=== PATIENT | male | born 1975 | race African-American/Black ===

== ENCOUNTER 2016-04-17 06:15 | Emergency (ER) | payer OTHER ==
[2016-04-17 06:31] VITALS: BP 178/102; PULSE 85; TEMP 98.1; BMI 38.7
--- NOTE | 2016-04-17 06:55 | PDOC ---
[id number] [id number] FALL/RT SHOULDER PAIN Time Seen by Provider: 04/17/16 06:45 - History of Present Illness Initial Comments: 04/17/16 06:46 CHIEF COMPLAINT: shoulder pain HISTORY OF PRESENT ILLNESS: 41-year-old male with PMH of HTN (not on medication ) presents to ED with R shoulder pain status post fall this morning on the stairs. Patient states that he was walking on the stairs and tripped; he grabbed the guardrail and felt a tight sensation to his R shoulder and then some tingling to his arm and hands. PAST MEDICAL HISTORY: "I know I have high blood pressure, I am going to see a doctor for that" FAMILY HISTORY: Denies SOCIAL HISTORY: Occupation: automotive service technician. Occasional alcohol use "just on weekends a little bit" Denies tobacco, illicit drug use. SURGICAL HISTORY: Denies ALLERGIES: No known drug allergies REVIEW OF SYSTEMS General/Constitutional: Denies fever or chills. Denies weakness. Cardiovascular: Denies chest pain or shortness of breath. Musculoskeletal: Pain to R shoulder. Denies joint or muscle swelling or pain. Denies neck or back pain. Skin: Denies rash or easy bruising. Neurological: Denies LOC, loss of sensation, vertigo, headache. PHYSICAL EXAM General Appearance: Well-appearing, appropriately dressed. No apparent distress. HEENT: EOMI, PERRLA, normal voice. No conjunctival pallor. No photophobia, scleral icterus. Respiratory/Chest: Lungs CTAB. Cardiovascular: RRR. S1, S2. Vascular Pulses: Dorsalis-Pedis (R): 2+, Dorsalis-Pedis (L): 2+ Musculoskeletal/Extremities: Positive empty can test. Positive Neer/Hawkin's test. Full ROM to R shoulder, no erythema, edema. Normal inspection. FROM of all other extremities, normal capillary refill. No tenderness to extremities, pedal edema, swelling, erythema or deformity. Integumentary: Appropriate color, dry, warm. No cyanosis, erythema, jaundice or rash Neurologic: dental tech II-XII intact. Fully oriented, alert. Appropriate mood/affect. Motor strength 5/5. No appreciable EOM palsy, facial droop or sensory deficit. Past History - Past Medical History Allergies/Adverse Reactions: Allergies Allergy/AdvReac Type Severity Reaction Status Date / Time No Known Allergies Allergy Verified 04/17/16 06:25 Home Medications: Ambulatory Orders No Home Medications 0 mg PO DAILY 07/25/13 Anemia: No Asthma: No Cancer: No Cardiac Disorders: No CVA: No COPD: No CHF: No DVT: No Dementia: No Diabetes: No Dialysis: No GI Disorders: No Disorders: No HTN: No Hypercholesterolemia: No HIV: No Kidney Stones: No Liver Disease: No Psychiatric Problems: Yes (? anxiety ) Suicide Attempt (Hx): No Seizures: No Thyroid Disease: No Lung CA: No - Surgical History Abdominal Surgery: No Appendectomy: No Cardiac Surgery: No Cholecystectomy: No Gastric Stapling: No GI Surgery: No Lung Surgery: No Neurologic Surgery: No Orthopedic Surgery: No - Immunization History Immunization Up to Date: Yes - Psycho/Social/Smoking Cessation Hx Anxiety: Yes Suicidal Ideation: No Smoking History: Current some day smoker Have you smoked in the past 12 months: Yes Number of Cigarettes Smoked Daily: 1 Cigars Per Day: 1 Information on smoking cessation initiated: No Hx Alcohol Use: No Drug/Substance Use Hx: No Substance Use Type: None *Physical Exam - Vital Signs Last Vital Signs Temp Pulse Resp BP Pulse Ox 98.1 F 85 14 178/102 100 04/17/16 06:26 04/17/16 06:26 04/17/16 06:26 04/17/16 06:26 04/17/16 06:26 Medical Decision Making - Medical Decision Making 04/17/16 06:55 41-year-old male with PMH of HTN (not on medication) presents to ED with R shoulder pain status post fall this morning on the stairs. -R shoulder x-ray -800 mg ibuprofen Case discussed in detail with oncoming emergency provider including history, physical exam and ancillary studies. In brief, this patient is being seen in the ED for a chief complaint of: Pending results: R shoulder x-ray Plan for disposition as follows: f/u with ortho, pain mgmt Oncoming NPA Latia has assumed care for the patient and will complete the evaluation and treatment. *DC/Admit/Observation/Transfer Diagnosis at time of Disposition: Shoulder strain Qualifiers: Encounter type: initial encounter Laterality: right Qualified Code(s): S46.911A - Strain of unspecified muscle, fascia and tendon at shoulder and upper arm level, right arm, initial encounter - Discharge Dispostion Disposition: HOME Condition at time of disposition: Good - Referrals Referrals: Sami Ricks MD [Staff Physician] - - Patient Instructions Printed Discharge Instructions: How To Perform RICE (Rest, Ice, Compress, Elevate), DI for Shoulder Sprain Additional Instructions: Discharge Instructions: -Take 600mg of Ibuprofen every 6 hours for pain with food -Follow RICE instructions -Continue to move your right shoulder but do not perform any heavy lifting until feeling better -Follow up with Dr. Ricks in 1 week if no improvement in symptoms - Post Discharge Activity Work/School Note: Back to Work
[2016-04-17] MEDS ORDERED: IBUPROFEN 400 MG TABLET (FP) PO ONE ×2 (06:56→07:01)
--- NOTE | 2016-04-17 07:30 | PDOC ---
ED Treatment Course - Medications Given in the ED: ED Medications Discontinued Medications Generic Name Dose Route Start Last Admin Trade Name Jovon PRN Reason Stop Dose Admin Ibuprofen 800 mg 04/17/16 06:56 04/17/16 07:00 Motrin - PO 04/17/16 06:57 800 mg ONCE ONE Administration Progress Note - Progress Note Progress Note: I have received report from MAGGIE Montejo regarding this patient. Pt's initial chief complaint: right shoulder pain Pt's work up completed prior to sign out: none Pt treatment given from prior staff: PO ibuprofen Pt plan to be completed: Awaiting xray of shoulder Dispo: Pending Medical Decision Making - Medical Decision Making A/P: 41 y/o male with right shoulder pain s/p fall this morning on stairs. He was initially assessed by MAGGIE Montejo and given PO Ibuprofen. Awaiting xray of right shoulder. Shoulder xray IMPRESSION: Unremarkable exam. Gave the patient his results. Will discharge with dx of shoulder strain and referral to orthopedic. He was instructed to call Dr. Ricks if sxs do not improve within 1 week. Suggested he take Ibuprofen every 6 hours with food for pain, follow RICE instructions and continue to move the shoulder. The patient verbalizes understanding of all instructions, has no further questions and is awaiting discharge. *DC/Admit/Observation/Transfer Diagnosis at time of Disposition: Strain of shoulder Qualifiers: Encounter type: initial encounter Laterality: right Qualified Code(s): S46.911A - Strain of unspecified muscle, fascia and tendon at shoulder and upper arm level, right arm, initial encounter - Discharge Dispostion Disposition: HOME Condition at time of disposition: Good - Referrals Referrals: Sami Ricks MD [Staff Physician] - - Patient Instructions Printed Discharge Instructions: DI for Shoulder Sprain, How To Perform RICE ( Rest, Ice, Compress, Elevate) Additional Instructions: Discharge Instructions: -Take 600mg of Ibuprofen every 6 hours for pain with food -Follow RICE instructions -Continue to move your right shoulder but do not perform any heavy lifting until feeling better -Follow up with Dr. Ricks in 1 week if no improvement in symptoms - Post Discharge Activity Work/School Note: Back to Work
--- NOTE | 2016-04-18 08:23 | PDOC ---
*Physical Exam - Vital Signs Last Vital Signs Temp Pulse Resp BP Pulse Ox 98.1 F 85 14 178/102 100 04/17/16 06:26 04/17/16 06:26 04/17/16 06:26 04/17/16 06:26 04/17/16 06:26 ED Treatment Course - Medications Given in the ED: ED Medications Discontinued Medications Generic Name Dose Route Start Last Admin Trade Name Jovon PRN Reason Stop Dose Admin Ibuprofen 800 mg 04/17/16 06:56 04/17/16 07:00 Motrin - PO 04/17/16 06:57 800 mg ONCE ONE Administration Medical Decision Making - Medical Decision Making 04/18/16 08:21 Pt came in prior to my shift. Pt was seen by MAGGIE Montejo and subsequently KARMA Braun Apparently Right shoulder injury Pt was evaluated by Xray and discharged *DC/Admit/Observation/Transfer Diagnosis at time of Disposition: Shoulder strain Qualifiers: Encounter type: initial encounter Laterality: right Qualified Code(s): S46.911A - Strain of unspecified muscle, fascia and tendon at shoulder and upper arm level, right arm, initial encounter - Discharge Dispostion Disposition: HOME Condition at time of disposition: Good - Referrals Referrals: Sami Ricks MD [Staff Physician] - - Patient Instructions Printed Discharge Instructions: How To Perform RICE (Rest, Ice, Compress, Elevate), DI for Shoulder Sprain Additional Instructions: Discharge Instructions: -Take 600mg of Ibuprofen every 6 hours for pain with food -Follow RICE instructions -Continue to move your right shoulder but do not perform any heavy lifting until feeling better -Follow up with Dr. Ricks in 1 week if no improvement in symptoms - Post Discharge Activity Work/School Note: Back to Work
== END 2016-04-17 08:12 | disposition home or self-care (01) ==
LOC: JER 06:15
DX: S46.811A Strain of other muscles, fascia and tendons at shoulder and upper arm level, right arm, initial encounter (principal); I10 Essential (primary) hypertension; W10.8XXA Fall (on) (from) other stairs and steps, initial encounter; Y93.89 Activity, other specified; Y92.018 Other place in single-family (private) house as the place of occurrence of the external cause
CPT/HCPCS: 73030-TC-RT; 99283-25

== ENCOUNTER 2016-09-14 15:24 | Emergency (ER) | payer OTHER ==
[2016-09-14 15:36] VITALS: BP 144/92; PULSE 90; TEMP 98.6; BMI 35.5
[2016-09-14] MEDS ORDERED: NAPROXEN 500 MG TABLET (FP) PO ONE (17:40)
--- NOTE | 2016-09-14 17:45 | PDOC ---
History of Present Illness - General Chief Complaint: Injury Stated Complaint: RT SHOULDER PAIN Time Seen by Provider: 09/14/16 16:12 History Source: Patient Exam Limitations: No Limitations - History of Present Illness Initial Comments: 09/14/16 17:40 c/o pain to the right shoulder after lifting heavy weights at the gym today. Past History - Past Medical History Allergies/Adverse Reactions: Allergies Allergy/AdvReac Type Severity Reaction Status Date / Time No Known Allergies Allergy Verified 09/14/16 15:31 Home Medications: Ambulatory Orders No Home Medications 0 mg PO DAILY 07/25/13 Naproxen [Naprosyn -] 500 mg PO BID PRN #14 tablet 09/14/16 Anemia: No Asthma: No Cancer: No Cardiac Disorders: No CVA: No COPD: No CHF: No DVT: No Dementia: No Diabetes: No Dialysis: No GI Disorders: No Disorders: No HTN: No Hypercholesterolemia: No HIV: No Kidney Stones: No Liver Disease: No Psychiatric Problems: Yes (? anxiety ) Suicide Attempt (Hx): No Seizures: No Thyroid Disease: No Lung CA: No - Surgical History Abdominal Surgery: No Appendectomy: No Cardiac Surgery: No Cholecystectomy: No Gastric Stapling: No GI Surgery: No Lung Surgery: No Neurologic Surgery: No Orthopedic Surgery: No - Immunization History Immunization Up to Date: Yes - Psycho/Social/Smoking Cessation Hx Anxiety: Yes Suicidal Ideation: No Smoking History: Never smoked Have you smoked in the past 12 months: Yes Number of Cigarettes Smoked Daily: 1 Cigars Per Day: 1 Hx Alcohol Use: Yes Drug/Substance Use Hx: No Substance Use Type: None *Physical Exam - Vital Signs Last Vital Signs Temp Pulse Resp BP Pulse Ox 98.6 F 90 18 144/92 100 09/14/16 15:32 09/14/16 15:32 09/14/16 15:32 09/14/16 15:32 09/14/16 15:32 - Physical Exam General Appearance: Yes: Nourished, Appropriately Dressed HEENT: positive: EOMI, JILLIAN Neck: positive: Supple. negative: Tender Respiratory/Chest: positive: Lungs Clear, Normal Breath Sounds. negative: Chest Tender Cardiovascular: positive: Regular Rhythm, Regular Rate Gastrointestinal/Abdominal: positive: Normal Bowel Sounds, Soft Musculoskeletal: positive: Normal Inspection Extremity: positive: Normal Inspection, Normal Range of Motion, Tender ( anterior rightg shoulder with abduction, no crepitus no swelling or deformity ) Integumentary: positive: Normal Color, Dry, Warm Neurologic: positive: Fully Oriented, Alert, Normal Mood/Affect, Normal Response , Motor Strength /5 Procedures - Splinting Progress: 09/14/16 19:11 sling placed to right arm ED Treatment Course - RADIOLOGY Radiology Studies Ordered: Category Date Time Status SHOULDER-RIGHT [RAD] Stat Radiology 09/14/16 16:11 Completed Medical Decision Making - Medical Decision Making 09/14/16 19:11 cc: right arm /shoulder pain with lifting heavy weights this AM pt has pain to the right shoulder will xray to r/o fracture naprosyn for pain nv intact *DC/Admit/Observation/Transfer Diagnosis at time of Disposition: Shoulder pain, acute Qualifiers: Laterality: right Qualified Code(s): M25.511 - Pain in right shoulder - Discharge Dispostion Disposition: HOME Condition at time of disposition: Good - Prescriptions Prescriptions: Naproxen [Naprosyn -] 500 mg PO BID PRN #14 tablet PRN Reason: Pain - Referrals Referrals: Cuate Figueroa MD [Staff Physician] - - Patient Instructions Additional Instructions: keep the shoulder in the sling while awake for the next 2-3 days remove to sleep and bathe take naproysn as directed for pain apply ice every 2hrs for 20 minutes for the next 2 days follow with the orthopedist or for follow up this week or next week no heavy weight lifting until seen by the orthopedist. - Post Discharge Activity Work/School Note: Back to Work
[2016-09-14] MEDS ORDERED: NAPROXEN 500 MG TABLET (FP) ONE (17:48)
== END 2016-09-14 17:58 | disposition home or self-care (01) ==
LOC: JERFT 15:24
DX: M25.511 Pain in right shoulder (principal); X50.0XXA Overexertion from strenuous movement or load, initial encounter; X50.3XXA Overexertion from repetitive movements, initial encounter; Y93.B3 Activity, free weights; Y92.39 Other specified sports and athletic area as the place of occurrence of the external cause; Y99.8 Other external cause status
CPT/HCPCS: 73030-TC-RT; 99281-25